=== PATIENT | male | born 1995 | race Caucasian/White ===

== ENCOUNTER 2019-03-28 14:23 | Emergency (ER) | payer OTHER ==
[~2019-03-28] VITALS: Ht 175.3 cm; Wt 99.8 kg
[2019-03-28 14:40] VITALS: Ht 175.3 cm; Wt 99.8 kg
[2019-03-28 15:45] VITALS: BP 115/58
== END 2019-03-28 15:45 | disposition home or self-care (01) ==
LOC: ED 14:23
DX: S93.601A Unspecified sprain of right foot, initial encounter (principal); F10.129 Alcohol abuse with intoxication, unspecified; F32.9 Major depressive disorder, single episode, unspecified; W04.XXXA Fall while being carried or supported by other persons, initial encounter; Y93.89 Activity, other specified; Y92.89 Other specified places as the place of occurrence of the external cause; Y99.8 Other external cause status; Y90.9 Presence of alcohol in blood, level not specified

== ENCOUNTER 2019-04-22 16:24 | Inpatient (IN) | payer OTHER ==
[~2019-04-22] VITALS: Ht 175.3 cm; Wt 106.6 kg
[2019-04-22 16:44] VITALS: Ht 175.3 cm; Wt 106.6 kg
--- NOTE | 2019-04-22 18:30 | NUR ---
BILAT DORSAL PEDAL PULSES FOUND WITH DOPPLER.
[2019-04-22 19:27] LABS: CALCIUM 9.3 mg/dL (8.5-10.1); CARBON DIOXIDE 29.3 mmol/L (21-32); CHLORIDE SERUM 106 mmol/L (98-107); CREATININE SERUM 0.9 mg/dL (0.7-1.3); GFR1 > 60 mL/min; GLUCOSE SERUM 103 mg/dL (74-106); POTASSIUM SERUM 4.7 mmol/L (3.5-5.1); SODIUM SERUM 144 mmol/L (136-145)
[2019-04-22 19:31] LABS: ALBUMIN 4.5 g/dL (3.4-5.0); ALKALINE PHOSPHATASE 82 U/L (46-116); ALT/SGPT 142 U/L (16-63); AST/SGOT 77 U/L (15-37); LIPASE 153 IU/L (73-393); TOTAL PROTEIN, SERUM 8.2 g/dL (6.4-8.2)
[2019-04-22 19:36] LABS: BASOPHIL % 0.2 % (0-2); PLATELET COUNT 275 x10^3mcL (130-400)
[2019-04-22 19:38] LABS: RED CELL DISTRIBUTION WIDTH 15.2 % (11.5-14.5)
[2019-04-22 19:39] LABS: MAGNESIUM 2.4 mg/dL (1.8-2.4); PHOSPHOROUS 2.5 mg/dL (2.5-4.9)
--- NOTE | 2019-04-22 20:15 | NUR ---
PT TO ED FOR EVAL OF BILAT ANKLE AND FEET PAIN. PT WAS ON A PALLET THAT WAS BEING RASIED BY A FORK LIFT. HE FELL OFF FORKLIFT, APPROX 20 FEET AND LANDED ON HIS FEET THEN FALLING ONTO BUTTOCKS. DENIES NECK OR BACK PAIN. + PAIN AND SWELLING TO BILA FEET. NO DEFORMITY. PT AWAKE AND ALERT. BREATHING EVEN UNLABORED. NO DISTRESS.
--- NOTE | 2019-04-22 20:20 | NUR ---
REPORT TO SHIRA.
[2019-04-22] MEDS ORDERED: WELSR PO (20:26)
--- NOTE | 2019-04-22 20:45 | NUR ---
RECEIVED PT FROM ER VIA ANDERS WITH FAMILY AT BEDSIDE. PT IS AWAKE, ALERT, ORIENTED X4. SPEECH CLEAR. ABLE TO MAKE NEEDS KNOWN. PT HAS IV TO RAC INFUSING NS. BLE APPEAR SWOLLEN, PER REPORT PT HAS BILATERAL HEEL FRACTURE D/T FALL AT WORK. BLE ELEVATED WITH PILLOW. PULSES PALPABLE. BERTA RN TO ADMIT PT AT THIS TIME. CALL LIGHT GIVEN TO PT, INSTRUCTED PT TO USE CALL LIGHT FOR ASSISTANCE. BED IS IN LOWEST POSITION. WILL CARRY OUT ALL NEW ORDERS AT THIS TIME.
--- NOTE | 2019-04-22 21:00 | NUR ---
MEDIUM CYCLE SALESPERSON AT BEDSIDE AT THIS TIME, ASSESSING AND WRAPPING BLE.
--- NOTE | 2019-04-22 21:00 | NUR ---
RECEIVED PT FROM ER, PT ADMIT FOR HANNAH CALCAEAS. PT IS A/O X4, VERBAL RESPONSIVE, LUNG SOUND CLEAR BILATERAL, NO COUGH, NO SOB. PT IS ON TELE 14, NSR, DENY ANY CHEST PAIN OR DISCOMFORT, BOWEL SOUND PRESENT ALL 4 QUADRANTS, NO DISTENTION, NO TENDER. PEDAL PULSE PRESENT BOTH FEET, NON PITTING SWELLING. PODARTIRST WRAPPING HANNAH LEG AT THE MOMENT. PT C/O MILD NUMBNESS AT TOES, IV AT RIGHT AC, NO LEAKING, NO INFILTRAITON. ALL ADLS ASSIST, ALL NEED MET, CALL LIGHT IN REACH, WILL CONTINUE TO MONITOR.
--- NOTE | 2019-04-22 21:45 | NUR ---
BLE WRAPPED WITH BANDAGES. DILAUDID IVP GIVEN ORDERED FOR PAIN.
--- NOTE | 2019-04-22 22:05 | NUR ---
XRAY AT BEDSIDE AT THIS TIME.
--- NOTE | 2019-04-22 22:40 | NUR ---
PERCOCET GIVEN AT THIS TIME, PT CONTINUES TO C/O PAIN TO BLE.
[2019-04-22 22:41] VITALS: BP 133/67
--- NOTE | 2019-04-22 23:35 | NUR ---
PT CONTINUES TO BE IN PAIN, TORADOL GIVEN ORDERED. ICE PACKS PROVIDE TO BILATERAL KNEES. BLE ELEVATED WITH TWO PILLOWS. IVF ONGOING. WILL CONTINUE TO MONITOR.
--- NOTE | 2019-04-23 02:55 | NUR ---
PT C/O PAIN TO BLE, MEDICATED WITH DILAUDID ORDERED. CALL LIGHT WITHIN REACH. WILL CONTINUE TO MONITOR CLOSELY.
--- NOTE | 2019-04-23 04:45 | NUR ---
PERCOCET GIVEN ORDERED FOR PAIN.
[2019-04-23 05:26] VITALS: BP 145/88
--- NOTE | 2019-04-23 06:25 | NUR ---
TORADOL GIVEN ORDERED. PT RESTING IN BED. BLE ELEVATED WITH PILLOWS. CALL LIGHT WITHIN REACH. BED IS IN LOWEST POSITION. WILL ENDORSE TO INCOMING SHIFT.
[2019-04-23 07:05] LABS: BASOPHIL % 0.4 % (0-2); PLATELET COUNT 202 x10^3mcL (130-400)
[2019-04-23 07:07] LABS: CALCIUM 8.1 mg/dL (8.5-10.1); CARBON DIOXIDE 25.9 mmol/L (21-32); CHLORIDE SERUM 103 mmol/L (98-107); CREATININE SERUM 0.9 mg/dL (0.7-1.3); GFR1 > 60 mL/min; GLUCOSE SERUM 107 mg/dL (74-106); MAGNESIUM 1.7 mg/dL (1.8-2.4); PHOSPHOROUS 4.2 mg/dL (2.5-4.9); SODIUM SERUM 138 mmol/L (136-145)
--- NOTE | 2019-04-23 08:01 | NUR ---
AAO TIMES 4. TELE # [address] [facility] CTA. NO SOB. O2 SAT ON RA 97%. BS'S ACTIVE TIMES 4. BLE WITH BRACE AND SOURAV ELEVATED ON PILLOWS WITH ICE BEHIND KNEES. IV SITE RAC PATENT, CDI. COOPERATIVE.
[2019-04-23 08:20] VITALS: BP 144/89
[2019-04-23 17:09] VITALS: BP 134/81
--- NOTE | 2019-04-23 17:57 | NUR ---
AAO TIMES 4. MED SURG PATIENT. NO C/O PAIN. NO SOB. BLE ELEVATED ON PILLOWS AND ICE PACKS ARE BEHIND HIS KNEES ORDERED. HIS FRIENDS AND FAMILY ARE VISITING NOW, HE IS HAPPY.
--- NOTE | 2019-04-23 19:30 | NUR ---
RECEIVED AWAKE IN BED WATCHING TV. SKIN WARM AND DRY TO TOUCH WITH DRESSING INTACT TO BLE, , ABLE TO WIGGLE TOES, NO IMPAIRED CIRCULATION NOTED. RESPIRATION EVEN AND UNLABORED. BLE ELEVATED WITH PILLOWS. FAMI;Y AT BEDSIDE VERY SUPPORTIVE OF PATIENT'S CURRENT PLAN OF CARE.
[2019-04-23 20:41] VITALS: BP 136/74
--- NOTE | 2019-04-24 00:01 | NUR ---
EYES CLOSED, PATIENT APPARENTLY ASLEEP SOUNDLY, RESPIRATION EVEN AND UNLABORED. NO S/S OF APIN/DISCOMFORT.
--- NOTE | 2019-04-24 01:02 | NUR ---
DUE MEDICATIONS GIVEN ORDERED, TOLERATED WELL, ABLE TO REPOSITION SELF IN BED. IVF NS CONTINOUSLY INFUSING AT 100CC/HR VIA PERIPHERAL LINE AT THE [facility] . BED IN LOWEST POSITION FOR SAFETY.
[2019-04-24 05:20] VITALS: BP 131/75
--- NOTE | 2019-04-24 06:00 | NUR ---
USES URINAL FOR BLADDER ELIMINATION. KEPT CLEAN AND DRY.ORAL FLUIDS TOLERATING WELL.
--- NOTE | 2019-04-24 07:09 | NUR ---
RECEIVED PT FROM MISSILE INSPECTOR NURSE. PT RESTING IN BED, AOX4, RESP E/U ON RA. DENIES NAUSEA, SOB OR PAIN AT THIS TIME, NO ACUTE DISTRESS NOTED. IV TO RAC W/ NO SIGNS OF INFILTRATION, IVF INFUSING WELL. SOURAV WRAP CDI TO BLE. BED IN LOWEST POSITION AND CALL LIGHT WITHIN REACH. WILL CONTINUE TO MONITOR.
[2019-04-24 08:33] VITALS: BP 140/93
[2019-04-24] MEDS ORDERED: NORCO1 TA2 PO (11:33)
--- NOTE | 2019-04-24 11:54 | NUR ---
PT RESTING IN BED, AOX4, RESP E/U ON RA. REPORTED MOD PAIN RATED 5/10. MEDICATED ORDERED PER EMAR. BLE ELAVATED ON PILLOWS, DRESSING CDI, ICE PACKS PLACED UNDER KNEES. BED IN LOWEST POSITION AND CALL LIGHT WITHIN REACH. WILL CONTINUE TO MONITOR.
[2019-04-24 15:23] VITALS: BP 140/93
[2019-04-24 17:05] VITALS: BP 141/86
--- NOTE | 2019-04-24 18:21 | NUR ---
PT IN BED HAVING DINNER, AOX4, RESP E/U ON RA. REPORTED MILD PAIN TO BILAT HEELS, TOLERABLE AT THIS TIME. BLE ELEVATED ON PILLOWS, COMPRESSION SPLINTS CDI, ICE APPLIED UNDER BOTH KNEES. IV TO RAC W/ NO SIGNS OF INFILTRATION, IVF INFUSING WELL. BED IN LOWEST POSITION AND CALL LIGHT WITHIN REACH. WILL ENDORSE TO ONCOMING NURSE.
--- NOTE | 2019-04-24 19:18 | NUR ---
RECEIVED PT FROM PREVIOUS SHIFT. PT A/OX4. DENIES PAIN. DENIES SOB ON RA. IV PATENT AND INFUSING NS AT 100ML/HR TO RAC WITH NO S/S OF INFILTRATION. BLE WITH COMPRESSION DRESSING AND ELEVATED. CAP REFIL <3 SECONDS. PT ABLE TO WIGGLE TOES. CALL LIGHT WITHIN REACH, BED IN LOW POSITION. WILL CONTINUE TO MONITOR.
[2019-04-24 19:41] VITALS: BP 136/84
[2019-04-25 04:12] VITALS: BP 139/69
--- NOTE | 2019-04-25 07:08 | NUR ---
RECEIVED PT FROM SENIOR BRANCH MANAGER NURSE. PT RESTING IN BED, AOX4, RESP E/U ON RA. PT DENIES PAIN AT THIS TIME, NO ACUTE DISTRESS NOTED. IV TO RAC W/ NO SIGNS OF INFILTRATION, IVF INFUSGIN WELL. COMPRESSION SPLINTS TO BLE IN PLACE CDI, ELEVATED ON PILLOWS. BED IN LOWEST POSTION AND CALL LIGHT WITHIN REACH. WILL CONTINUE TO MONITOR.
[2019-04-25 08:17] VITALS: BP 136/88
[2019-04-25 13:07] VITALS: BP 140/93
--- NOTE | 2019-04-25 13:50 | NUR ---
DISCHARGE DONE. REVIEWED VISIT SUMMARY, EDUCATIONAL PACKET, FOLLOW UP INSTRUCTIONS AND NEW RX MEDS W/ PT. PT AOX4, RESP E/U ON RA, VS STABLE, DENIES PAIN AT THIS TIME. IV TO RAC REMOVED, CATH INACT, GAUZE DRESSING APPLIED. PT BROUGHT DOWN TO LOBBY VIA WHEELCHAIR, ESCORTED BY TAI MIKE W/ NO ACUTE INCIDENCE.
== END 2019-04-25 14:21 | disposition home or self-care (01) | DRG 563 ==
LOC: ED 16:24 → MU 19:05
PROVIDERS: Emergency Medicine; ADMIT Internal Medicine
DX: S92.062A Displaced intraarticular fracture of left calcaneus, initial encounter for closed fracture (principal); S92.061A Displaced intraarticular fracture of right calcaneus, initial encounter for closed fracture; S80.812A Abrasion, left lower leg, initial encounter; S80.811A Abrasion, right lower leg, initial encounter; F10.129 Alcohol abuse with intoxication, unspecified; D72.829 Elevated white blood cell count, unspecified; E78.5 Hyperlipidemia, unspecified; F32.9 Major depressive disorder, single episode, unspecified; E66.9 Obesity, unspecified; Z72.0 Tobacco use; Z68.32 Body mass index [BMI] 32.0-32.9, adult; Y90.6 Blood alcohol level of 120-199 mg/100 ml; W17.89XA Other fall from one level to another, initial encounter; Y99.0 Civilian activity done for income or pay; Y92.59 Other trade areas as the place of occurrence of the external cause
CPT/HCPCS: 83880; 90715; 97530-GP; 99406; G0378; G0480; J1170; J1885; J3010; J7030; Q0092